=== PATIENT | female | born 1945 | race Caucasian/White ===

== ENCOUNTER → 2017-09-18 | Outpatient (CLI) | payer OTHER | END | disposition home or self-care (01) | LOC: KCIC DEXA 10:45 | DX: M81.0 Age-related osteoporosis without current pathological fracture (principal); M85.88 Other specified disorders of bone density and structure, other site; E11.9 Type 2 diabetes mellitus without complications; Z78.0 Asymptomatic menopausal state | CPT/HCPCS: 77080 ==

== ENCOUNTER → 2019-05-08 | Outpatient (CLI) | payer OTHER ==
[2015-11-07 13:40] VITALS: BP 118/66
[~2019-05-08] MED LIST: ALBU8.5H6 IH; ALEN70TA6 PO; FLUT15OI2 TP; FURO10DI PO; HYDR12.58 PO; LISI10TA2 PO; POTA10TA31 PO; SIMV20TA18 PO
--- NOTE | 2019-05-08 15:17 | RAD ---
2 views of the left tib-fib without comparison for pain, recent fall. FINDINGS: There is no definite fracture or acute osseous abnormality identified. No radiopaque foreign bodies. Mild soft tissue edema diffusely. IMPRESSION: 1. No acute osseous abnormalities. Electronically signed by: Fernando Song MD (05/08/2019 3:14 PM) [facility]
== END | disposition home or self-care (01) ==
LOC: RAD 13:07
PROVIDERS: ATTEND Internal Medicine
DX: M79.662 Pain in left lower leg (principal); M79.89 Other specified soft tissue disorders
CPT/HCPCS: 73590

== ENCOUNTER → 2020-08-25 | Outpatient (CLI) | payer OTHER ==
[2015-11-07 13:40] VITALS: BP 118/66
[~2020-08-25] MED LIST changes: -ALEN70TA6 PO; +ALEN70TA71 PO; +LISI10TA16 PO; -LISI10TA2 PO
--- NOTE | 2020-08-26 04:48 | KCIC ---
DXA BONE DENSITY AXIAL History: Reason: ESTROGEN DEFICIENCY / Spl. Instructions: / History: Postmenopausal Comparison: September 18, 2017 TECHNIQUE: Dual energy x-ray absorptiometry of the lumbar spine and left hip was performed. T-score o f average bone mineral density based was calculated based on standard deviations above or below the e xpected young adult normal value. Diagnostic definitions were established by the [employer]. FINDINGS: The average bone mineral density associated with L1-L4 is 1.106 g/cm^2, corresponding with a T-score of 0.5. Decreased bone mineral density compared to prior. The average total bone mineral density associated with left hip is 0.830 g/cm^2, corresponding with a T-score of -0.9. Increased bone mineral density compared to prior. Refer to the worksheets for full detail. IMPRESSION: 1. Bone mineral density within normal range. Increased bone mineral density within the left hip comp ared to prior. 2. Decreased bone mineral density within the lumbar spine. Electronically signed by: Hernandez Maldonado DO (08/26/2020 4:46 AM) [facility]
--- NOTE | 2020-08-29 11:40 | KCIC ---
Bilateral digital screening mammograms with 3-D tomosynthesis: Reason for examination: Routine screening. New baseline. No previous exams available for comparison. Bilateral mammograms in CC and oblique projections were obtained with 2-D imaging and 3-D tomosynthes is imaging on a Siemens Inspiration unit and reviewed on the workstation. Interpretation was made wit h the benefit of CAD. The skin and nipples show no abnormalities. No abnormal axillary lymph nodes are seen. The breast par enchyma shows scattered fatty and fibroglandular density. (Breast density: Category B.) There are sma ll benign circumscribed lesions seen bilaterally. There are no dominant masses, suspicious calcificat ions or architectural distortion. Benign calcifications are present. Impression: Small benign-appearing nodules seen bilaterally. Recommend follow-up evaluation with ultrasound. BI-RAD Category 0: Incomplete. Needs additional imaging evaluation. "Our facility is accredited by the [employer] Mammography Program." This patient's information has been entered into a reminder system for the patient to be notified wit h the results of her examination and a target date for the next mammogram. Electronically signed by: Ofe Monge MD (08/29/2020 11:38 AM) [facility]
== END ==
LOC: KCIC MAMMO 10:48
PROVIDERS: ATTEND Internal Medicine
DX: Z12.31 Encounter for screening mammogram for malignant neoplasm of breast (principal); N63.10 Unspecified lump in the right breast, unspecified quadrant; N63.20 Unspecified lump in the left breast, unspecified quadrant; E28.39 Other primary ovarian failure; Z78.0 Asymptomatic menopausal state
CPT/HCPCS: 77067; 77080

== ENCOUNTER → 2020-09-21 | Outpatient (CLI) | payer OTHER ==
[2015-11-07 13:40] VITALS: BP 118/66
--- NOTE | 2020-09-21 14:52 | KCIC ---
Bilateral breast ultrasound: Reason for examination: Nodules on new baseline mammographic exam. Comparison is made to mammographic exam dated 08/25/2020. Ultrasound examination of the breasts and axilla was performed bilaterally. In the right breast, there is a small 5.7 mm hypoechoic fibrocystic lesion at the 10:00 position 3 cm from the nipple. There is a 5.2 mm hypoechoic fibrocystic type lesion at the 12:00 position 1 cm fro m the nipple. No suspicious abnormalities are seen in the right breast. No abnormal appearing lymph n odes are seen in the right axilla. In the left breast, there is a small 5.6 mm hyperechoic lesion consistent with a lipoma at the 2:00 p osition 4 cm from the nipple. At the 10:00 position 4 cm from the nipple, there is a 4.7 mm hyperecho ic lesion consistent with a lipoma. At the 12:00 position 1 cm from the nipple, there is a 5.2 mm hyp oechoic fibrocystic lesion. No suspicious abnormalities are seen in the left breast. No abnormal appe aring lymph nodes are seen in the left axilla. IMPRESSION: Small fibrocystic lesions bilaterally which are subcentimeter in size. Small lipoma in the left breas t. No suspicious abnormalities are seen. Recommend 6 month follow-up with ultrasound. BI-RADS Category 3: Probably Benign. "Our facility is accredited by the [employer] Mammography Program." This patient's information has been entered into a reminder system for the patient to be notified wit h the results of her examination and a target date for the next mammogram. Electronically signed by: Ofe Monge MD (09/21/2020 2:50 PM) [facility]
== END ==
LOC: KCIC US 12:26
PROVIDERS: ATTEND Internal Medicine
DX: R92.8 Other abnormal and inconclusive findings on diagnostic imaging of breast (principal)
CPT/HCPCS: 76641

== ENCOUNTER → 2020-11-04 | Outpatient (CLI) | payer OTHER ==
[2015-11-07 13:40] VITALS: BP 118/66
--- NOTE | 2020-11-04 17:12 | KCIC ---
Site ID: [id number] EXAMINATION: XR HIP bilateral AP and frog lateral views. HISTORY: 74 years Female Reason: BILAT HIP PAIN WITH WALKING, CHRONIC, NO INJURY COMPARISON: None. FINDINGS: No fracture, dislocation or radiopaque foreign body. There is a mild to moderate degenerative scle rotic change in the hip joints seen bilaterally more on the right side. Mild degenerative changes in the SI joints noted. Benign-appearing calcification in the pelvis is noted. There is moderate to amou nt of fecal material in the rectum and colon. IMPRESSION: Mild to moderate bilateral hip degenerative changes. Electronically signed by: Jah Linder MD (11/04/2020 5:09 PM) [id number]
== END ==
LOC: KCIC 13:15
PROVIDERS: ATTEND Internal Medicine
DX: M16.0 Bilateral primary osteoarthritis of hip (principal)
CPT/HCPCS: 73521

== ENCOUNTER 2021-08-11 11:18 | Emergency (ER) | payer OTHER ==
[~2021-08-11] VITALS: Ht 149.9 cm; Wt 85.9 kg
[2021-08-11] MEDS ORDERED: oxyCODONE/APAP 5/325 1 TAB TABLET ONE (11:36)
[2021-08-11] MEDS ORDERED: LIDOCAINE 1%/EPI 1:100,000 20 ML VIAL. ONE (11:36)
[2021-08-11] MEDS: LIDOCAINE 1%/EPI 1:100,000 20 ML VIAL. INJ ONE ×2 (11:40→15:19)
[2021-08-11] MEDS ORDERED: oxyCODONE/APAP 5/325 1 TAB TABLET PO ONE (13:45)
--- NOTE | 2021-08-11 13:56 | RAD ---
CT brain without contrast, CT C-spine without contrast. HISTORY: Pain after a fall CT brain CT scan of brain was done without contrast. There is opacification the left maxillary sinus with incr eased density suggesting chronic fungal sinusitis. Remaining sinuses are clear. There is no skull fra cture. There is extracranial soft tissue swelling on the left forehead. There is no intracranial hemo rrhage or subdural hematoma. There is no mass effect or shift of the midline. An acute CVA is not ijeoma ntified. Ventricles are normal in size. There is an old lacunar infarct in the anterior limb of the i nternal capsule on the right. IMPRESSION: 1. Old right lacunar infarct. 2. Extracranial swelling left forehead. 3. No intracranial hemorrhage or acute CVA noted. 4. Left maxillary sinusitis. End impression CT cervical spine Axial CT images were obtained through this cervical spine. Sagittal and coronal reconstructed images were reviewed. Thyroid is homogeneous. An acute C-spine fracture is not identified. There is degenera tive disc disease at C4-5, C5-6 and C6-7. There is arthritis with joint space narrowing and spurring at the C1-2 articulation on the left. Odontoid is intact. IMPRESSION: 1. Degenerative changes in the cervical spine. 2. No acute C-spine fracture. PQRS Compliance Statement: One or more of the following individualized dose reduction techniques were utilized for this examinat ion: 1. Automated exposure control 2. Adjustment of the mA and/or kV according to patient size 3. Use of iterative reconstruction technique Electronically signed by: Luke Jacobs MD (08/11/2021 1:53 PM) [facility]
[2021-08-11 15:08] VITALS: BP 141/62
[2021-08-11] MEDS ORDERED: DIPHTH,PERTUSS(ACELL),TET TOX 0.5 ML DISP.SYRIN. VAX IM ONE (15:30)
== END 2021-08-11 15:12 | disposition home or self-care (01) ==
LOC: ER 11:18
DX: S01.81XA Laceration without foreign body of other part of head, initial encounter (principal); S13.4XXA Sprain of ligaments of cervical spine, initial encounter; J32.0 Chronic maxillary sinusitis; W01.198A Fall on same level from slipping, tripping and stumbling with subsequent striking against other object, initial encounter; Y93.89 Activity, other specified; Y92.89 Other specified places as the place of occurrence of the external cause; Y99.8 Other external cause status
CPT/HCPCS: 12002; 70450; 72125; 90471; 90715; 99285; J3490